=== PATIENT | male | born 1990 | race Two or more races ===

== ENCOUNTER 2019-02-10 13:17 | Emergency (ER) | payer MEDICAID ==
[~2019-02-10] VITALS: Ht 170.2 cm; Wt 80.5 kg
[2019-02-10 13:21] VITALS: BP 128/59; PULSE 67; RESP 16; Ht 170.2 cm; Wt 80.5 kg
== END 2019-02-10 17:00 | disposition home or self-care (01) ==
LOC: FTE 13:17
DX: R31.9 Hematuria, unspecified (principal)
CPT/HCPCS: 36415; 76775; 80053; 81001; 85025; 87086; Z7502